=== PATIENT | male | born 1940 | race Caucasian/White ===

== ENCOUNTER 2017-05-22 07:57 | Day surgery (SDC) | payer MEDICARE, BC ==
[~2017-05-22] VITALS: Ht 177.8 cm; Wt 99.8 kg
[2017-05-22] VITALS (12 sets, daily range): BP systolic 108–156; BP diastolic 63–82
[2017-05-22] MEDS ORDERED: TOPROL XL200 MG ORAL (08:47)
[2017-05-22] MEDS ORDERED: ATORVASTATIN CA80 MG ORAL (08:47)
[2017-05-22] MEDS ORDERED: ESCITALOPRAM OX10 MG ORAL (08:47)
[2017-05-22] MEDS ORDERED: XANAX XR1 MG ORAL (08:47)
[2017-05-22] MEDS ORDERED: DIOVAN160 MG ORAL (08:47)
[2017-05-22] MEDS ORDERED: ASPIR 8181 MG ORAL (08:47)
[2017-05-22] MEDS ORDERED: TYLENOL325 MG ORAL (08:47)
[2017-05-22] MEDS ORDERED: Lidocaine 1% 10mg/ml/Epi 0.005mg/ml 30ml vial INJ ONE (08:52)
[2017-05-22] MEDS ORDERED: Ropivacaine 5mg/ml Vial 30ml INJ ONE (08:53)
[2017-05-22] MEDS ORDERED: EPINEPHrine 1mg/1ml Amp ONE (08:53)
[2017-05-22] MEDS ORDERED: NS Irrig 4000ml IRRIG ONE ×2 (09:17→09:30)
[2017-05-22] MEDS ORDERED: Propofol 200mg/20ml IV ONE (09:30)
[2017-05-22] MEDS ORDERED: fentaNYL 100 mcg/2 mL IV ONE (09:30)
[2017-05-22] MEDS ORDERED: Sterile Water Irrig 1000ml IRRIG ONE (09:30)
--- NOTE | 2017-05-22 09:41 | Pre-Procedure Note/Attestation ---
Pre-Procedure Note/Attestation Complete Prior to Procedure Planned Procedure: right Procedure Narrative: Right knee arthroscopy with partial menisectomy Indications for Procedure Pre-Operative Diagnosis: Right knee meniscus tear Attestation I attest that I discussed the nature of the procedure; its benefits; risks and complications; and alternatives (and the risks and benefits of such alternatives ), prior to the procedure, with the patient (or the patient's legal benefits representative). I attest that, if there was a reasonable possibility of needing a blood transfusion, the patient (or the patient's legal benefits representative) was given the [facility] standardized written summary, pursuant to the Mynor Meckling Blood Safety Act ([place] Health and Safety Code # 1645, as amended). I attest that I re-evaluated the patient just prior to the surgery and that there has been no change in the patient's H&P, except as documented below: EDNI MACKEY May 22, 2017 09:41
[2017-05-22] MEDS ORDERED: D5 1/2NS 1,000 ML IV SCH (09:45)
[2017-05-22] MEDS ORDERED: Norco 5mg/325mg tab ORAL PRN (09:45)
[2017-05-22] MEDS ORDERED: Tylenol #3 tab (300mg/30mg) ORAL PRN (09:45)
[2017-05-22] MEDS ORDERED: HYDROmorphone 1mg/ml Carpuject SUBQ PRN (09:45)
--- NOTE | 2017-05-22 10:37 | Brief Operative Note ---
Immediate Post Operative Note Operative Note Pre-op Diagnosis: Right knee meniscus tear Procedure: Right knee arthroscopy with partial medial and lateral menisectomy Post-op Diagnosis: same as pre-op Findings: consistent w/pre-op dx studies Surgeon: Jude Anesthesia: general, local Specimen: none Complications: none Condition: stable Fluids: 150 ml Estimated Blood Loss: none Drains: none Implant(s) used?: No EDIN MACKEY May 22, 2017 10:37
--- NOTE | 2017-05-22 10:41 | Anethesia Preoperative Eval ---
Anesthesia Pre-op PMH/ROS General Date of Evaluation: May 22, 2017 Time of Evaluation: 09:00 ASA Score: ASA 3 Mallampati Score Class I : Soft palate, uvula, fauces, pillars visible Class II: Soft palate, uvula, fauces visible Class III: Soft palate, base of uvula visible Class IV: Only hard plate visible Mallampati Classification: Class II Allergies: Coded Allergies: MORPHINE (Verified Allergy, Severe, violently ill , 05/22/17) SULFA (SULFONAMIDE ANTIBIOTICS) (Verified Allergy, Unknown, mild reaction , 05/22/17) Past Medical History Cardiovascular: Reports: HTN, CAD Pulmonary: Reports: asthma, COPD Gastrointestinal/Genitourinary: Reports: GERD Endocrine: Reports: DM Musculoskeletal/Integumentary: Reports: OA Other: obesity Anesthesia Pre-op Phys. Exam Physician Exam Last Vital Signs Date Time Temp Pulse Resp B/P (MAP) Pulse Ox O2 Delivery O2 Flow Rate FiO2 05/22/17 08:35 97.1 59 18 128/82 96 Room Air Airway Exam Mallampati Score: Class II Kelton Morales MD May 22, 2017 10:41
--- NOTE | 2017-05-22 10:41 | Immediate Post-Op Evaluation ---
Immediate Post-Op Evalulation Immediate Post-Op Evalulation Procedure: right knee arthroscopy Date of Evaluation: May 22, 2017 Time of Evaluation: 10:41 Nausea: No Vomiting: No Given Within 1 Hr of Incision: Yes Kelton Morales MD May 22, 2017 10:41
[2017-05-22] MEDS ORDERED: Ketorolac 30mg Inj IV PRN (10:45)
[2017-05-22] MEDS ORDERED: Hydromorphone 0.5mg/0.5ml inj IVP PRN (10:45)
[2017-05-22] MEDS ORDERED: fentaNYL 100 mcg/2 mL IV PRN (10:45)
--- NOTE | 2017-05-22 15:45 | Operative Note - Dictated ---
DATE OF OPERATION: 05/22/2017 SURGEON: Anselmo Roque M.D. EMPLOYEE PLACEMENT SPECIALIST: None. ANESTHESIA: General plus local. COMPLICATIONS: None. ANTIBIOTICS: Ancef. PREOPERATIVE DIAGNOSIS: Right knee medial lateral meniscal tears. POSTOPERATIVE DIAGNOSIS: Right knee medial lateral meniscal tears. PROCEDURE PERFORMED: Right knee arthroscopy with: 1. Partial medial meniscectomy. 2. Partial lateral meniscectomy. BACKGROUND: The patient has had longstanding right knee pain refractory to nonoperative management. An MRI confirmed the diagnosis. All risks, benefits, and alternatives to surgical intervention were discussed in great detail. Risks included, but were not limited to, bleeding, infection, neurovascular injury, need for additional surgical intervention, failure of pain relief, arthrofibrosis, complications of anesthesia, blood clots, stroke, heart attack, potentially . He understood these risks, amongst others, and consent was signed. PROCEDURE IN DETAIL: The patient was brought into the operating room and placed supine on the operating table. The right knee was correctly verified for surgical site and prepped and draped in standard sterile fashion. Examination under anesthesia revealed normal range of motion, symmetric with the contralateral side, no laxity, and trace effusion. Anterolateral and anteromedial portals were marked and injected with 20 mL of 1% lidocaine with epinephrine. A diagnostic arthroscopy was undertaken. It revealed the followin. Normal suprapatellar pouch. 2. 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 3. Normal medial gutter. 4. Normal lateral gutter. 5. Normal lateral compartment. 6. Macerated complex tear, middle horn lateral meniscus. 7. Normal anterior cruciate ligament. 8. Normal PCL. 9. Posterior horn medial meniscus tear. 10. Normal medial compartment. In the medial compartment, using an up biter, right biter, and 4.0 mm shaver, the medial meniscal tear was resected to a stable border and tested with a probe. Attention was then turned to the lateral compartment. In the lateral compartment, the middle horn macerated complex tear was resected to a stable border using an up biter, left biter, right biter, and 4.0 mm shaver. It was tested with a probe after resection and found to be stable. All fluid and debris were evacuated from the knee. A 10 mL of 1% lidocaine with epinephrine were injected. The wounds were copiously irrigated and reapproximated using 4-0 Monocryl subcuticular fashion. Steri-Strips were used over Mastisol. Dry sterile dressing was applied. A compressive stocking was fitted. He was transferred to recovery in good condition after tolerating the procedure well. I attest I performed the entire operation. Anselmo Roque M.D. DR: CARLOS JOB#: [id number] CC:
== END 2017-05-22 13:15 | disposition home or self-care (01) ==
LOC: SUR 07:57
DX: S83.281A Other tear of lateral meniscus, current injury, right knee, initial encounter (principal); S83.241A Other tear of medial meniscus, current injury, right knee, initial encounter; G47.33 Obstructive sleep apnea (adult) (pediatric); I25.10 Atherosclerotic heart disease of native coronary artery without angina pectoris; I10 Essential (primary) hypertension; Z95.5 Presence of coronary angioplasty implant and graft; K21.9 Gastro-esophageal reflux disease without esophagitis; E11.9 Type 2 diabetes mellitus without complications; M19.90 Unspecified osteoarthritis, unspecified site; J44.9 Chronic obstructive pulmonary disease, unspecified; I25.2 Old myocardial infarction; Z85.46 Personal history of malignant neoplasm of prostate; Z79.82 Long term (current) use of aspirin; Z87.891 Personal history of nicotine dependence; Z80.1 Family history of malignant neoplasm of trachea, bronchus and lung; Z80.0 Family history of malignant neoplasm of digestive organs; Z80.8 Family history of malignant neoplasm of other organs or systems; Z81.3 Family history of other psychoactive substance abuse and dependence; Z81.1 Family history of alcohol abuse and dependence; Z88.6 Allergy status to analgesic agent; Z88.2 Allergy status to sulfonamides; X58.XXXA Exposure to other specified factors, initial encounter; Y93.9 Activity, unspecified; Y92.9 Unspecified place or not applicable
CPT/HCPCS: 29880; J0171; J0690; J2704; J3010; 94003; 94150